=== PATIENT | female | born 1950 | race Caucasian/White ===

== ENCOUNTER 2017-08-09 21:31 | Inpatient (IN) ==
--- NOTE | 2017-08-09 21:45 | Emergency Department Note ---
Disposition Clinical Impression: Acute exacerbation of chronic obstructive airways disease Disposition: Admitted As Inpatient SOB HPI - General Chief Complaint: ED Shortness of Breath/Dyspnea Stated Complaint: SOB Time Seen by Provider: 08/09/17 21:40 Source: patient, family Limitations: no limitations Nursing Notes Reviewed: Yes Vital Signs Reviewed: Yes - History of Present Illness Pt Subjective Complaint: shortness of breath, cough Onset (ago): day(s) (4) Severity: moderate Consistency/Duration: constant Improves with: nothing Worsens with: nothing Known history of: COPD Associated symptoms: Reports: denies other symptoms Treatment prior to arrival: other (steroids and antibiotics) Cough Description: Non-Productive Cough Frequency: Intermittent Sputum production: No - Related Data Home Medications Medication Instructions Recorded Confirmed Gabapentin [Neurontin] 300 mg PO TID 08/09/17 08/10/17 Levothyroxine [Synthroid] 150 mcg PO DAILY 08/09/17 08/10/17 Lisinopril [Zestril] 40 mg PO QAM 08/09/17 08/10/17 Paliperidone [Paliperidone ER] 6 mg PO QAM 08/09/17 08/10/17 Sertraline 150 mg PO HS 08/09/17 08/10/17 clonazePAM [Klonopin] 1 mg PO HS 08/09/17 08/10/17 lamoTRIgine [Lamictal] 25 mg PO BID 08/09/17 08/10/17 Allergies Allergy/AdvReac Type Severity Reaction Status Date / Time bupropion [From Wellbutrin] Allergy Hives Verified 08/09/17 21:33 Paroxetine [From Paxil] Allergy Hives Verified 08/09/17 21:33 Penicillins Allergy Hives Verified 08/09/17 21:33 All systems ED: reviewed and negative except as stated. Review of Systems: As Per HPI Constitutional: Denies: fever, chills, weakness, weight change Eyes: Denies: eye pain, eye discharge, vision change ENT ED: Denies: ear pain, throat pain, dental pain, hearing loss, epistaxis, congestion, dysphagia Cardiovascular: Denies: chest pain, palpitations, dyspnea on exertion, edema, syncope Respiratory: Reports: as per HPI, cough, dyspnea, wheezes. Denies: sputum production Gastrointestinal: Denies: abdominal pain, nausea, vomiting, diarrhea, constipation, hematemesis, melena, hematochezia Genitourinary: Denies: dysuria, frequency, hematuria, discharge Musculoskeletal: Denies: back pain, neck pain, arthralgia, myalgia Integumentary: Denies: rash, abrasion, lesions Neurological: Denies: headache, weakness, numbness, paresthesias, confusion, abnormal gait, vertigo Psychiatric: Denies: anxiety, depression, suicidal thoughts, homicidal thoughts , auditory hallucinations, visual hallucinations Endocrine: Denies: fatigue Hematological/Lymphatic: Denies: easy bleeding, easy bruising Allergic/Immunologic: Denies: facial swelling, urticaria Past Medical History - Past Medical History Attestation: Yes The following information was validated with the patient. Source: patient Medical history: Reports: cancer, COPD, hypertension, thyroid disease Psychiatric history: Reports: anxiety, bipolar, depression, schizophrenia - Social History Smoking Status: Current every day smoker Alcohol use: Reports: none Drug use: Reports: none Physical Exam - General Limitations: no limitations General appearance: alert - Head Head exam: atraumatic, normocephalic, normal inspection - Eye Eye exam: Present: normal appearance, PERRL, EOMI - ENT ENT exam: normal exam, normal oropharynx, mucous membranes moist - Neck Neck exam: Present: normal inspection, full ROM, trachea midline - Chest Chest inspection: Present: normal inspection, symmetric chest wall rise - Respiratory Respiratory exam: Present: wheezes, prolonged expiratory phase. Absent: respiratory distress - Cardiovascular Cardiovascular exam: Present: regular rate, normal rhythm, normal heart sounds - Abdominal Exam Abdominal exam: Present: soft, Non-Tender - Extremities Exam Extremities exam: Present: normal inspection - Expanded Lower Extremity Exam Hip/Pelvis exam: Present: normal inspection - Back Exam Back exam: Present: normal inspection - Neurological Exam Neurological exam: Present: alert, oriented X3 - Psychiatric Psychiatric exam: Present: normal affect - Skin Skin exam: Present: warm, dry, intact Course Vital Signs Temperature 97.9 F 08/09/17 21:34 Pulse Rate 64 08/09/17 21:34 Respiratory Rate 17 08/09/17 21:34 Blood Pressure 182/97 08/09/17 21:34 O2 Sat by Pulse Oximetry 94 08/09/17 21:34 Temperature 98.6 F 08/09/17 23:54 Pulse Rate 90 08/09/17 23:54 Respiratory Rate 22 08/09/17 23:54 Blood Pressure 170/85 08/09/17 23:54 O2 Sat by Pulse Oximetry 92 08/09/17 23:54 Oxygen Delivery Oxygen Delivery Nasal Cannula Shortness of Breath/Dyspnea - MDM Narrative Medical decision making narrative: PT is known to have HTN - Lab Data Lab results reviewed: Yes I reviewed the patient's lab results. Result diagrams: 08/09/17 22:00 08/09/17 22:00 Lab Results 08/09/17 08/09/17 08/09/17 Range/Units 22:00 22:00 22:00 WBC 6.8 (4.3-11.1) K/mcL RBC 4.43 (3.82-4.97) M/mcL Hgb 13.0 (11.5-15.4) g/dL Hct 38.8 (35.3-44.9) % MCV 87.6 (83.0-100.0) fL MCH 29.3 (28.0-33.3) pg MCHC 33.5 (31.6-35.5) g/dL RDW 15.0 H (11.5-14.5) % Plt Count 218 (140-400) K/mcL MPV 10.6 (9.4-12.4) fL Immature Gran % 0.3 (0-4) % Seg Neutrophils % 69.3 % Lymphocytes % 19.2 % Monocytes % 9.9 % Eosinophils % 0.6 % Basophils % 0.7 % Neutrophils # 4.7 (1.6-8.9) K/mcL Lymphocytes # 1.3 (0.6-4.6) K/mcL Monocytes # 0.7 (0.0-1.3) K/mcL Eosinophils # 0.0 (0.0-0.6) K/mcL Basophils # 0.1 (0.0-0.2) K/mcL Sodium 143 (136-145) mEq/L Potassium 3.8 (3.5-4.5) mEq/L Chloride 107 (98-109) mEq/L Carbon Dioxide 27 (19-29) mEq/L BUN 21 H (7-20) mg/dL Creatinine 0.72 (0.57-1.11) mg/dL Est GFR ( Amer) > 60 (> 60) Est GFR (Non-Af Amer) > 60 (> 60) BUN/Creatinine Ratio 29 H (6-26) Glucose 59 L (70-99) mg/dL Calculated Osmolality 297 (280-300) Calcium 9.3 (8.6-10.8) mg/dL Total Bilirubin 0.3 (0.2-1.2) mg/dL AST 15 (5-34) Units/L ALT 11 (0-55) Units/L Alkaline Phosphatase 58 (38-126) Units/L Troponin I 0.02 (0-0.03) ng/mL Serum Total Protein 7.2 (6.0-8.3) g/dL Albumin 3.9 (3.5-5.0) g/dL Globulin 3.3 (2.4-3.5) g/dL Albumin/Globulin Ratio 1.2 (1.1-2.2) - Radiology Data Radiology results reviewed: Yes I reviewed the patient's radiology results. - EKG Data EKG attestation: Yes I reviewed and interpreted this EKG. EKG results narrative: EKG shows sinus rhythm with incomplete right bundle branch pattern wandering baseline otherwise unremarkable with a rate of 61 bpm. NV interval of 169 ms QRS duration 106 ms QT and QTC intervals 399 and 403 ms respectively R axis of 70 degrees
[2017-08-09] MEDS ORDERED: Ipratropium/Albuterol Neb 3 ML IH ONE (21:49)
[2017-08-09 22:15] LABS: Basophils # 0.1 K/mcL (0.0-0.2); Basophils % 0.7 %; Eosinophils % 0.6 %; Hematocrit 38.8 % (35.3-44.9); Immature Granulocytes % 0.3 % (0-4); Lymphocytes # 1.3 K/mcL (0.6-4.6); Lymphocytes % 19.2 %; Mean Corpuscular HGB Conc 33.5 g/dL (31.6-35.5); Mean Corpuscular Hemoglobin 29.3 pg (28.0-33.3); Mean Corpuscular Volume 87.6 fL (83.0-100.0); Mean Platelet Volume 10.6 fL (9.4-12.4); Monocytes # 0.7 K/mcL (0.0-1.3); Monocytes % 9.9 %; Neutrophils # 4.7 K/mcL (1.6-8.9); Platelet Count 218 K/mcL (140-400); Red Blood Count 4.43 M/mcL (3.82-4.97); Segmented Neutrophils % 69.3 %
[2017-08-09 22:34] LABS: Alanine Aminotransferase 11 Units/L (0-55); Albumin 3.9 g/dL (3.5-5.0); Albumin/Globulin Ratio 1.2 (1.1-2.2); Alkaline Phosphatase 58 Units/L (38-126); Aspartate Amino Transferase 15 Units/L (5-34); BUN/Creatinine Ratio 29 (6-26); Bilirubin,Total 0.3 mg/dL (0.2-1.2); Blood Urea Nitrogen 21 mg/dL (7-20); Calcium 9.3 mg/dL (8.6-10.8); Carbon Dioxide 27 mEq/L (19-29); Chloride 107 mEq/L (98-109); Globulin 3.3 g/dL (2.4-3.5); Glucose 59 mg/dL (70-99); Osmolality,Calculated 297 (280-300); Potassium 3.8 mEq/L (3.5-4.5); Sodium 143 mEq/L (136-145); Total Protein 7.2 g/dL (6.0-8.3); eGFR For African Americans > 60 (> 60); eGFR For Non-African Americans > 60 (> 60)
[2017-08-09] MEDS ORDERED: Levofloxacin 500 MG/100 ML 500 MG/100 ML BAG IVPB ONE (23:05)
[2017-08-09] MEDS ORDERED: 0.9 % Sodium Chloride 1,000 ML IVC SCH (23:05)
[2017-08-09] MEDS ORDERED: Naloxone 0.4 MG/ML INJ IVP PRN (23:05)
[2017-08-10] MEDS ORDERED: methylPREDNISolone 125 MG/2 ML VIAL IVP SCH (03:15)
[2017-08-10] MEDS ORDERED: Albuterol 2.5 MG/3 ML NEBULIZER ONE (03:17)
[2017-08-10] MEDS: Albuterol 2.5 MG/3 ML NEBULIZER IH PRN ×5 (03:19→21:04)
[2017-08-10] MEDS ORDERED: clonazePAM 0.5 MG TABLET PO SCH (09:00)
[2017-08-10] MEDS: lamoTRIgine 25 MG TABLET PO SCH ×2 (09:03→21:26)
[2017-08-10] MEDS: Gabapentin 300 MG CAPSULE PO SCH ×3 (09:03→21:27)
[2017-08-10] MEDS: Lisinopril 20 MG TABLET PO SCH (09:04)
--- NOTE | 2017-08-10 11:00 | Internal Med History&Physical ---
Date of Encounter: 08/10/17 Time of Encounter: 10:40 Assessment and Plan (1) Acute exacerbation of chronic obstructive airways disease Current visit: Yes Status: Acute She was started on IV Levaquin in the emergency room. We will continue this with lactobacillus. (2) Hypertension Current visit: Yes Status: Chronic Continue lisinopril. Qualifiers: Hypertension type: essential hypertension Qualified Code(s): I10 - Essential (primary) hypertension (3) Hypothyroid Current visit: Yes Status: Acute We will check TSH in a.m. Qualifiers: Hypothyroidism type: postablative Qualified Code(s): E89.0 - Postprocedural hypothyroidism Internal Medicine - H&P: HPI Chief complaint: Dyspnea and cough Admitted From: Emergency Dept Plans for Post Hospital Care: Home History of present illness: Ms. Barker is a 67 year old female who came to emergency room stating she had increasing dyspnea with cough over the past 3 days. She reports her cough is productive of white phlegm. She was felt to have exacerbation of COPD and was admitted to [facility] floor for ongoing care needs. She has smoked since age 14 up to 2 packs per day. She has a diagnosis COPD but does not recall having PFTs. She does not use home oxygen. She has had negative workup for LOU. Past Med Surg Social Fam HX - Past Medical History Medical history: cancer, COPD, hypertension, thyroid disease Psychiatric history: anxiety, bipolar, depression, schizophrenia - Social History Smoking Status: Current every day smoker Alcohol use: none Drug use: none Internal Medicine - H&P: Meds Gabapentin [Neurontin] 300 mg PO TID 08/09/17 [History] Levothyroxine [Synthroid] 150 mcg PO DAILY 08/09/17 [History] Lisinopril [Zestril] 40 mg PO QAM 08/09/17 [History] Paliperidone [Paliperidone ER] 6 mg PO QAM 08/09/17 [History] Sertraline 150 mg PO HS 08/09/17 [History] clonazePAM [Klonopin] 1 mg PO HS 08/09/17 [History] lamoTRIgine [Lamictal] 25 mg PO BID 08/09/17 [History] 3 Allergy/AdvReac Type Severity Reaction Status Date / Time bupropion [From Wellbutrin] Allergy Hives Verified 08/09/17 21:33 Paroxetine [From Paxil] Allergy Hives Verified 08/09/17 21:33 Penicillins Allergy Hives Verified 08/09/17 21:33 All Systems PM: A 10-system review of systems was performed and is negative for pertinent findings except as documented above in the HPI. Review of systems: Gen.: She states her weight has been stable past few months Cardiovascular: She has history of hypertension but denies AL heart failure angina DVT or pulmonary embolus Respiratory: As per history of present illness GI: She has had cholecystectomy. She denies disorders of her liver or exocrine pancreas : She has had kidney stones in the past. She denies other kidney or bladder disorders Neurologic: She denies large distribution strokes or seizures. Endocrine: She has history of goiter with radioactive iodine ablation with resultant hypothyroidism and now takes Synthroid. She denies hyperlipidemia or diabetes Hematology/oncology: She denies blood disorders cancers or anemia Psychiatric: She has anxiety and depression and schizophrenia. She follows at mental-health clinic. [place] skeletal: She has DJD but no known gout or other bone joint or muscle disorders. - Constitutional Vitals: Temp Pulse Resp BP Pulse Ox 100.2 F H 77 18 137/71 95 08/10/17 06:45 08/10/17 06:45 08/10/17 09:35 08/10/17 06:45 08/10/17 09:35 Exam: Gen.: She is a well-developed well-nourished female lying in bed who appears minimally dyspneic HEENT: Head is atraumatic and normocephalic. Eyes: EOMI. There is no scleral icterus. Mouth: Mucosa is moist. Neck: Supple and nontender. There is no thyromegaly or adenopathy noted. Heart: Regular without murmurs gallops or ectopics Lungs: No wheezes or crackles are heard. She has diminished breath sounds diffusely. Abdomen: Soft and nontender. No masses or guarding are noted. Extremities: There is no cyanosis edema or clubbing noted. Dorsalis pedis and posterior tibial pulses are 1-2 over 2 bilaterally. Neurologic: Mental status: She is talkative and a good historian. Cranial nerves: Smile is symmetric. Forehead wrinkles bilaterally. Tongue protrudes midline. EOMI. Motor: There is no pronator drift. Cerebellar: Finger to nose is intact bilaterally. Skin: Warm and dry Internal Med - H&P Results - Labs CBC & Chem 7: 08/09/17 22:00 08/09/17 22:00
[2017-08-10] MEDS: Levofloxacin 500 MG/100 ML 500 MG/100 ML BAG IVPB SCH (11:56)
--- NOTE | 2017-08-10 16:59 | Electrocardiograph Report ---
[place] [id number] Test Date: 2017-08-09 Pat Name: Marilyn Barker Department: [id number] Room: [facility] Gender: F [employer] Tender: [id number] : 1950 Requested By: Ashkan Call Order Number: [id number] Reading MD: Himanshu Goncalves DO Measurements Intervals [place] Rate: 61 P: 72 MI: 169 QRS: 70 QRSD: 106 T: 67 QT: 399 QTc: 403 Interpretive Statements SINUS RHYTHM INCOMPLETE RIGHT BUNDLE BRANCH BLOCK NONSPECIFIC ST-T CHANGES Electronically Signed On 08-10-2017 16:57:51 EST by Himanshu Goncalves DO
[2017-08-10] MEDS: predniSONE 10 MG TABLET PO SCH (17:00)
[2017-08-10] MEDS ORDERED: clonazePAM 0.5 MG TABLET PO PRN (18:24)
[2017-08-10] MEDS ORDERED: clonazePAM 1 MG TABLET PO SCH (21:00)
[2017-08-10] MEDS: Lactobacillus 1 EACH CAP.SPRINK PO SCH (21:26)
[2017-08-10] MEDS: clonazePAM 0.5 MG TABLET PO SCH (21:27)
[2017-08-11] MEDS: *HR* Enoxaparin 40 MG/0.4 ML SYRINGE SQ SCH (05:57)
[2017-08-11 06:07] LABS: Basophils % 0.7 %; Eosinophils # 0.1 K/mcL (0.0-0.6); Eosinophils % 0.9 %; Immature Granulocytes % 0.2 % (0-4); Lymphocytes # 1.7 K/mcL (0.6-4.6); Lymphocytes % 31.3 %; Mean Corpuscular HGB Conc 34.3 g/dL (31.6-35.5); Mean Corpuscular Hemoglobin 29.9 pg (28.0-33.3); Mean Corpuscular Volume 87.3 fL (83.0-100.0); Mean Platelet Volume 10.3 fL (9.4-12.4); Monocytes # 0.6 K/mcL (0.0-1.3); Monocytes % 10.8 %; Neutrophils # 3.1 K/mcL (1.6-8.9); Platelet Count 190 K/mcL (140-400); Red Blood Count 4.01 M/mcL (3.82-4.97); Red Cell Distribution Width 15.3 % (11.5-14.5); Segmented Neutrophils % 56.1 %
[2017-08-11 06:33] LABS: Reactive Lymphocytes Present (Not Present)
[2017-08-11] MEDS ORDERED: clonazePAM 0.5 MG TABLET PO SCH (09:00)
[2017-08-11] MEDS: predniSONE 10 MG TABLET PO SCH ×2 (09:21→17:23)
[2017-08-11] MEDS: Lactobacillus 1 EACH CAP.SPRINK PO SCH ×2 (09:21→19:38)
[2017-08-11] MEDS: lamoTRIgine 25 MG TABLET PO SCH ×2 (09:22→19:38)
[2017-08-11] MEDS: Lisinopril 20 MG TABLET PO SCH (09:22)
[2017-08-11] MEDS: Gabapentin 300 MG CAPSULE PO SCH ×3 (09:22→19:38)
[2017-08-11] MEDS: clonazePAM 0.5 MG TABLET PO SCH ×2 (09:22→19:38)
--- NOTE | 2017-08-11 09:56 | Internal Med Progress Note ---
Date of Encounter: 08/11/17 Time of Encounter: 09:45 - Assessment and plan (1) Acute exacerbation of chronic obstructive airways disease Current Visit: Yes Status: Acute Assessment and plan: August 11. Continue Levaquin, prednisone, and lactobacillus. Will add Robitussin-DM. (2) Hypertension Current Visit: Yes Status: Chronic Assessment and plan: August 11. Continue lisinopril Qualifiers: Hypertension type: essential hypertension Qualified Code(s): I10 - Essential (primary) hypertension (3) Hypothyroid Current Visit: Yes Status: Acute Assessment and plan: August 11. TSH was normal at 0.672. Continue present dose Synthroid Qualifiers: Hypothyroidism type: postablative Qualified Code(s): E89.0 - Postprocedural hypothyroidism - Subjective Interval history: August 11. She has no new complaints. She still feels dyspneic. She states her cough is becoming more productive. - Constitutional Vitals: Temp Pulse Resp BP Pulse Ox 98.2 F 55 16 136/74 98 08/11/17 06:57 08/11/17 06:57 08/11/17 06:57 08/11/17 06:57 08/11/17 06:57 Exam: She is resting in bed. Lungs show prolonged expiratory phase and mild diffuse wheezing. Reviewed her medications and lab results. Her saturation on bedside monitor ranged from 80-94% during my visit. Internal Medicine: Result - Labs CBC & Chem 7: 08/11/17 05:40 08/09/17 22:00 Labs: Short CBC 08/11/17 Range/Units 05:40 WBC 5.5 (4.3-11.1) K/mcL Hgb 12.0 (11.5-15.4) g/dL Hct 35.0 L (35.3-44.9) % Plt Count 190 (140-400) K/mcL Neutrophils # 3.1 (1.6-8.9) K/mcL Consult Discharge Plan - Plan Referrals: Destin Dugan, [employer] [Primary Care Provider] - 1 week
[2017-08-11] MEDS: Levofloxacin 500 MG/100 ML 500 MG/100 ML BAG IVPB SCH (11:22)
[2017-08-11] MEDS: Albuterol 2.5 MG/3 ML NEBULIZER IH PRN ×3 (13:38→21:05)
[2017-08-12] MEDS: Albuterol 2.5 MG/3 ML NEBULIZER IH PRN ×2 (01:20→05:07)
[2017-08-12] MEDS: *HR* Enoxaparin 40 MG/0.4 ML SYRINGE SQ SCH (05:28)
[2017-08-12 06:19] VITALS: BP 113/61
[2017-08-12] MEDS: predniSONE 10 MG TABLET PO SCH (09:19)
[2017-08-12] MEDS: clonazePAM 0.5 MG TABLET PO SCH (09:19)
[2017-08-12] MEDS: Gabapentin 300 MG CAPSULE PO SCH (09:20)
[2017-08-12] MEDS: Lisinopril 20 MG TABLET PO SCH (09:20)
[2017-08-12] MEDS: Lactobacillus 1 EACH CAP.SPRINK PO SCH (09:20)
[2017-08-12] MEDS: lamoTRIgine 25 MG TABLET PO SCH (09:20)
--- NOTE | 2017-08-12 10:18 | Discharge Summary ---
Date of Encounter: 08/12/17 Time of Encounter: 10:05 - Discharge Diagnosis (1) Acute exacerbation of chronic obstructive airways disease Priority: Primary Status: Acute (2) Hypertension Priority: Secondary Status: Chronic Qualifiers: Hypertension type: essential hypertension Qualified Code(s): I10 - Essential (primary) hypertension (3) Hypothyroid Priority: Secondary Status: Acute Qualifiers: Hypothyroidism type: postablative Qualified Code(s): E89.0 - Postprocedural hypothyroidism - Discharge Medications Prescriptions: Doxycycline 100 mg PO BID 7 Days capsule Home Medications: Gabapentin [Neurontin] 300 mg PO TID 08/09/17 [History] Levothyroxine [Synthroid] 150 mcg PO DAILY 08/09/17 [History] Lisinopril [Zestril] 40 mg PO QAM 08/09/17 [History] Paliperidone [Paliperidone ER] 6 mg PO QAM 08/09/17 [History] Sertraline 150 mg PO HS 08/09/17 [History] clonazePAM [Klonopin] 1 mg PO HS 08/09/17 [History] lamoTRIgine [Lamictal] 25 mg PO BID 08/09/17 [History] Doxycycline 100 mg PO BID 7 Days capsule 08/12/17 [Rx] Allergies/Adverse Reactions: 3 Allergy/AdvReac Type Severity Reaction Status Date / Time bupropion [From Wellbutrin] Allergy Hives Verified 08/09/17 21:33 Paroxetine [From Paxil] Allergy Hives Verified 08/09/17 21:33 Penicillins Allergy Hives Verified 08/09/17 21:33 Procedures/tests Complete & Pending: Procedures Performed prior 72 hours Category Date Time Status CT chest wo con [CT] Routine Cat Scan 08/11/17 09:57 Draft Date of admission: 08/10/17 11:29 Primary care physician: Destin Dugan CNP - Patient Status Disposition: Home, Self-Care Overall status at discharge: patient is progressing back to baseline - Discharge Instructions Follow Up With: Destni Dugan CNP [Primary Care Provider] - 1 week - Diet and Activity Activity: resume usual activities as tolerated Diet: advance to your usual diet Hospital course: Ms. Barker is a 67 year old female who came to emergency room stating she had increasing dyspnea with cough over the past 3 days. She reports her cough is productive of white phlegm. She was felt to have exacerbation of COPD and was admitted to [facility] for ongoing care needs. Initial orders were written by the emergency room physician. I saw her on August 10 and performed the history and physical. She was given IV Levaquin and Lactobacillus. Chest CT was done to further evaluate. There were multifocal tree-in-bud opacities suggestive of infectious bronchiolitis. There were moderate to severe emphysematous changes and trace pericardial effusion. She had clinical improvement with less dyspnea remained afebrile after first hospital day. On August 12 she felt stable for discharge home which I felt was reasonable. She will follow with her PCP within one week. I encouraged her to become a nonsmoker. Room air oximetry on 6 minute walk done day of discharge did not show need for supplemental oxygen. She will take doxycycline given her the day prior to admission to complete 7 day course. - Time Spent with Patient Total time spent providing and/or coordinating discharge services: - Constitutional Vitals: Temp Pulse Resp BP Pulse Ox 98.0 F 56 20 113/61 98 08/12/17 06:16 08/12/17 06:16 08/12/17 06:16 08/12/17 06:16 08/12/17 06:16
== END 2017-08-12 13:15 | disposition home or self-care (01) | DRG 191 ==
LOC: EMEROOPIK 21:31 → INPPIK 21:31
PROVIDERS: ADMIT Internal Medicine; ATTEND Internal Medicine